=== PATIENT | female | born 1955 | race Caucasian/White ===

== ENCOUNTER → 2023-12-26 11:44 | Outpatient (BNVA) | payer SELFPAY | PROVIDERS: PCP Nurse Practitioner; Visit Provider Nurse Practitioner ==

== ENCOUNTER 2024-10-27 09:23 | Outpatient (AMB) | payer OTHER, MEDICARE, SELFPAY ==
--- NOTE | 2024-10-27 09:25 | A.OFFVIS_ITS ---
Vital Signs 10/27/24 09:26 Height 5 ft 3 in Weight 102 lb BMI 18.1 BP 148/66 H Blood Pressure Location Rt brachial Position Sitting Pulse 98 Pulse Source Pulse Oximeter Pulse Oximetry (%) 94 Oxygen Delivery Method Room Air Intake Visit Reasons: [place] rescreening. [facility] 12/2023. Intake Note: Est pt for rescreening prior to colo. CC: Pt denies any significant GI sx or concerns at this time. Pt still reports occasional gas and bloating but states that it is diet controlled and she is not overly concerned about it. Precision Inspector Required: No Accompanied by: Self / Same As Patient Allergies No Known Drug Allergies Allergy (Unknown, Verified 10/27/24 09:26) none HPI HPI [place] rescreening. [facility] 12/2023.: Details: Assessment & Plan (1) Positive colorectal cancer screening using Cologuard test: Code(s): R19.5 - Other fecal abnormalities Category: Medical (2) Encounter for pre-operative examination: Code(s): Z01.818 - Encounter for other preprocedural examination Plan She had a prior colonoscopy >10 year ago that went well and now a positive Cologuard. She had uneven BM's with days of CIC and gassiness I suggest a benefiber or citrucel supplement. She feels bubbling in her RUQ at times but no other upper GI problems. She denies any cardiac or respiratory problems She is fairly naive to anesthesia and sedation. NO ID problems. She had a + Cologuard but no known FHX Of crc or polyps. Orders: Orders Colonoscopy - GI Use Only Today R19.5 - Other fecal abnormalities, Z01.818 - Encounter for other preprocedural examination Comprehensive Met. Panel Today R19.5 - Other fecal abnormalities, Z01.818 - Encounter for other preprocedural examination Complete Blood Count Auto Diff Today R19.5 - Other fecal abnormalities, Z01.818 - Encounter for other preprocedural examination Medications: New polyethylene glycol 3350 (Miralax) 238 grams PO ONCE 238 grams 0RF colonoscopy prep 1 day bisacodyl (Dulcolax (bisacodyl)) 10 mg (2 x 5 mg) PO BEDTIME 4 tabs 0RF 2 days LABS COLONOSCOPY BIOPSY TODAYS VISIT She is here today because of apparent miscommunication although we saw her in December of 2023 and a colonoscopy was ordered at that time, she has not been receiving the messages from our schedulers to call back. I think we will probably resolve this by utilizing her home number instead of her cell phone number which has not answering machine available. She denies any cardiac or respiratory problems She is fairly naive to anesthesia and sedation. NO ID problems. She had a + Cologuard but no known FHX Of crc or polyps. [facility] Medical History Squamous cell carcinoma, leg Lumbar vertebral fracture Surgical History (Reviewed 10/27/24 @ 09: by AMBREEN Peres) H/O colonoscopy Family History (Reviewed 10/27/24 @ 09: by AMBREEN Peres) Mother Primary cancer of foot Maternal Aunt Breast cancer Social History (Reviewed 10/27/24 @ 09: by AMBREEN Peres) Alcohol intake: former Comment: social drinker in the past (wine and beer) Patient Tobacco Use Status: Current everyday Tobacco user Cigarettes Per Day: 10 Years Smoked: 30 Review of Systems Const Denies fatigue, Denies fever(s), Denies night sweats, Denies poor appetite and Denies weight loss Eyes Details: GLASSES Reports requires corrective lenses ENT Reports Normal hearing present, Denies dental pain, Denies dysphagia, Denies hearing loss, Denies mouth pain, Denies odynophagia, Denies throat swelling, Denies tongue swelling and Reports other (Dentition adequate) Card Reports no additional complaints Resp Reports no additional complaints GI Details: Denies abdominal pain, Denies melena, Denies bloating, Denies hematochezia, Denies constipation, Denies GI cramping, Denies dysphagia, Denies excessive flatus, Denies early satiety, Denies heartburn, Denies diarrhea, Denies nausea, Denies odynophagia, Denies vomiting and Denies hematemesis Skin/Breast Denies pruritus, Denies lesions, Denies rash and Denies jaundice Neuro Reports Normal hearing present and Denies Abnormal speech present Endo Denies fatigue Aller/Immun Denies throat swelling and Denies tongue swelling Physical Exam Vital Signs: Last Vital Signs Pulse 98 10/27/24 09:26 BP 148/66 H 10/27/24 09:26 Pulse Ox 94 10/27/24 09:26 Oxygen Delivery Method Room Air 10/27/24 09:26 BMI result Body Mass Index 18.1 Const General: cooperative, no acute distress, well developed and well groomed Nutritional Appearance: average body habitus and well nourished Orientation/consciousness: oriented to person, oriented to place and oriented to time Limitations: No language barrier HEENT Head: Yes normocephalic and Yes atraumatic Eyes General: appearance normal, both eyes and all related structures Pupils: Equal, round and reactive pupils present Neck Neck: Yes normal visual inspection and Yes no lymphadenopathy Thyroid: Thyroid normal Resp Effort & Inspection: normal respiratory effort and able to speak in complete sentences Auscultation: clear to auscultation bilaterally Cardio Rate: regular rate Rhythm: regular rhythm Heart sounds: Normal, physiologic split S2 sound present Peripheral pulses: radial pulses present and posterior tibial pulses present GI Inspection: No distended and No Abdominal panniculus present Palpation (GI): Soft to palpation, nontender, no guarding, not rigid and No hepatosplenomegaly present Percussion: Yes normal to percussion Auscultation: normal bowel sounds Rectal Exam - Female: deferred Skin General skin exam: no rashes or lesions noted, turgor normal, skin not dry, no jaundice, No spider nevi and no striae Rashes: no rashes Nails: normal Neuro General: oriented to person, oriented to place and oriented to time Cranial nerves: Yes Equal, round and reactive pupils present and Yes Normal hearing present Speech: No Abnormal speech present Extrem General: Yes normal to inspection, No clubbing, No cyanosis and No edema Psych Appearance: grossly normal and well kempt Mental Status: mental status grossly normal Speech and movement: Normal speech and movement present Affect: normal affect Attitude: cooperative Thought process: Normal thought process present and not confabulating Thought content: Normal thought content present Insight: Good insight present (Psych) Judgement: Good judgement present (Psych) Assessment & Plan Assessment & Plan (1) Positive colorectal cancer screening using Cologuard test: Code(s): R19.5 - Other fecal abnormalities Category: Medical (2) Smoker: Code(s): F17.200 - Nicotine dependence, unspecified, uncomplicated Category: Medical (3) Chronic pain syndrome: Code(s): G89.4 - Chronic pain syndrome Category: Medical (4) Opioid dependence: Code(s): F11.20 - Opioid dependence, uncomplicated Category: Medical Plan She is here today because of apparent miscommunication although we saw her in December of 2023 and a colonoscopy was ordered at that time, she has not been receiving the messages from our schedulers to call back. I think we will probably resolve this by utilizing her home number instead of her cell phone number which has not answering machine available. She denies any cardiac or respiratory problems She is fairly naive to anesthesia and sedation. NO ID problems. She had a + Cologuard but no known FHX Of crc or polyps. Coding Level of Care Code Est Pt Level 3 (67269) Diagnoses Positive colorectal cancer screening using Cologuard test R19.5 Smoker F17.200 Chronic pain syndrome G89.4 Opioid dependence F11.20
[2024-10-27 09:26] VITALS: BP 148/66; PULSE 98; O2SAT 94; BMI 18.1
--- OUTSIDE RECORDS SUMMARY | 2024-10-27 10:06 | XMS_ITS | Clinical Summary ---
Author Organization [facility] Address [address] [place] [address] Care Team Providers Care Photographic Platemaker Name Role Phone Dayanara Arrington PA-C Primary Care Provider [phone] Social History Tobacco Use Types Packs/Day Years Used Date Smoking Tobacco: Never Assessed Sex and Gender Information Value Date Recorded Sex Assigned at Not on file Gender Identity Not on file Sexual Orientation Not on file Plan of Treatment Health Maintenance Due Date Last Done Comments Hepatitis C Screening 1955 COVID-19 Vaccine (#1) 1957 Depression Screening 1969 Preventative Health Evaluation 1975 DTap / Tdap / Td (1 - Tdap) 01/24/1976 Colon Cancer Screening (Colonoscopy) 2002 Breast Cancer Screening (Mammogram) 2007 Shingrix-Zoster Vaccine (1 of 2) 2007 Fall Risk Assessment 2022 Osteoporosis Screening (DEXA Scan) 2022 Pneumococcal Vaccine (1 of 1 - PCV) 2022 Influenza Vaccine (#1) 2024 RSV Adult > 60+ Yrs or Pregn ant (1 - 1-dose 75+ series) 01/24/2032 Hepatitis B Vaccines Aged Out No long er eligible based on patient's age to complete this topic RSV Ped < 20 months Aged Out No longe r eligible based on patient's age to complete this topic Care Teams Photographic Platemaker Relationship Specialty Start Date End Date Dayanara Arrington PA-C [address] [place] [address] [address] [place] [address] PCP - General Family Medicine 09/21/20
--- OUTSIDE RECORDS SUMMARY | 2024-10-27 10:07 | XMS_ITS | Clinical Summary ---
Author Organization [facility] Address [address] [place] [address] Phone Care Team Providers Care Hotel Services Supervisor Name Role Phone Bolivar Rosario MD Primary Care Provider + Allergies No known active allergies Medications carisoprodol (SOMA) 350 MG tablet Take 350 mg by mouth nightly at bedtime. 4 Active polyethylene glycol (MIRALAX) 17 gram/dose powder MIX AND TAKE 238 GIVE ORALLY ONCE FOR COLONOSCOPY PREP X 1 DAY 4 Active acetaminophen-c odeine (TYLENOL #2) 300-15 mg per tablet Take 1 tablet by mouth every 4 (four) hours as needed for pain (specific location in comments). Active naproxen (NAPROSYN) 500 MG tablet Take 1 tablet (500 mg total) by mouth 2 (two) times a day for 3 days. Then twice daily as needed for pain, inflammation 20 tablet 5 Active albuterol (PROAIR HFA) 90 mcg/actuation inhaler Inhale 2 puffs into the lungs every 4 (four) hours as needed for wheezing. 18 g 5 Active benzonatate (TESSALON) 100 MG capsule Take 2 capsules (200 mg total) by mouth 3 (three) times a day as needed for cough. 21 capsule 5 Active inhaler spacing device (AEROCHAMBER,BR EATHERITE) Spcr Inhale 1 each into the lungs every 4 (four) hours as needed (WITH INHALER). 1 each 5 Active Active Problems No known active problems Immunizations Immunization Administration Dates Next Due Tdap 10/04/2022 Social History Tobacco Use Types Packs/Day Years Used Date Smoking Tobacco: Never Assessed Tobacco Cessation:Counseling Given: Yes Education Answer Date Recorded Are you interested in more education? Not on chelsey e 03/26/2024 Are you concerned about learning? Not on file 03/26/2024 No 03/26/2024 No 03/26/2024 Digital Access Answer Date Recorded No 03/26/2024 No 03/26/2024 Reliable internet access at home? Not on file 03/26/2024 Device with a working camera? Not on file Comments Unknown Sex and Gender Information Value Date Recorded Sex Assigned at Not on file Legal Sex Female 8:05 AM EST Gender Identity Not on file Sexual Orientation Not on file Last Filed Vital Signs Vital Sign Reading Time Taken Comments Blood Pressure 134/84 05/04/2024 8:34 AM EST Pulse 111 05/04/2024 8:34 AM EST Temperature 36.7 C (98.1 F) 05/04/2024 8:34 AM EST Respiratory Rate 18 05/04/2024 8:34 AM EST Oxygen Saturation 96% 05/04/2024 8:34 AM EST Inhaled Oxygen Concentration - - Weight - - Height - - Body Mass Index - - Plan of Treatment Health Maintenance Due Date Last Done Comments LIPID PANEL 1957 DEPRESSION SCREENING 1969 SMOKING Hx and SMOKELESS TOB ACCO SCREENING 1970 HEPATITIS C SCREENING 1975 MAMMOGRAM 1997 COLOGUARD 2002 COLONOSCOPY 2002 COLORECTAL CANCER SCREENING 2002 FIT TEST 2002 FOBT 2002 SIGMOIDOSCOPY 2002 VIRTUAL COLONOSCOPY 2002 PNEUMOCOCCAL VACCINES (50+ y ears) (1 of 1 - PCV) 2007 ZOSTER VACCINES (1 of 2) 2007 OSTEOPOROSIS SCREENING INITI AL (ONE-TIME) 2022 COVID-19 VACCINE (2 - 2023-2 5 season) 2023 10/23/2020 RSV VACCINE (1 - 1-dose 75+ series) 01/24/2032 Adult Td,Tdap Booster 10/04/2032 10/04/2022 HEPATITIS A VACCINES Aged Out No long er eligible based on patient's age to complete this topic HIB VACCINES Aged Out No longer eligi ble based on patient's age to complete this topic MENINGOCOCCAL VACCINES (ACWY) Aged Out No longer eligible based on patient's age to complete this topic MENINGOCOCCAL VACCINES (B) Aged Out N o longer eligible based on patient's age to complete this topic Medical Devices Not on [place] [address] [employer] Member Subscriber Plan / Payer (Ef fective 2018-Present) Name:JensRebecca waterman Relation to Subscriber:Self Name:TetoRebecca Payer ID:[id number] (NAIC) Type:PPO Address: [address] [id number] [employer] PREFERRED [place] [address] [employer] Member Subscriber Plan / Payer (Ef fective 2018-Present) Name:Rebecca Irene Relation to Subscriber:Self Name:TetoRebecca Payer ID:[id number] (NAIC) Type:PPO Address: [address] [id number] [employer] P[employer] REPLACEMENT [employer] REPLACEMENT [employer] P[employer] PPO REPLACEMENT [employer] REPLACEMENT [employer] REPLACEMENT Care Teams Hotel Services Supervisor Relationship Specialty Start Date End Date Bolivar Rosario MD [address] [facility] [address] [place] [address] PCP - General Internal Medicine 03/26/24 Additional Source Comments The information contained in this document represents components of the legal health record. It is not the complete legal health record.[facility]
== END 2024-10-27 10:04 | disposition home or self-care (01) ==
PROVIDERS: PCP Nurse Practitioner; Visit Provider Nurse Practitioner
DX: R19.5 Other fecal abnormalities (principal); F17.200 Nicotine dependence, unspecified, uncomplicated; G89.4 Chronic pain syndrome; F11.20 Opioid dependence, uncomplicated
CPT/HCPCS: 99213

== ENCOUNTER 2024-12-16 09:29 | Day surgery (SDC) | payer MEDICARE, OTHER, SELFPAY ==
--- OUTSIDE RECORDS SUMMARY | 2024-12-02 18:29 | XMS_ITS | Clinical Summary ---
Author Organization [facility] Address [address] [place] [address] Care Team Providers Care Regulator Operator Name Role Phone Dayanara Arrington PA-C Primary Care Provider [phone] Social History Tobacco Use Types Packs/Day Years [...] age to complete this topic Care Teams Regulator Operator Relationship Specialty Start Date End Date Dayanara Arrington PA-C [address] [place] [address] [address] [place] [address] PCP - General Family Medicine 09/21/20
--- OUTSIDE RECORDS SUMMARY | 2024-12-02 18:29 | XMS_ITS | Clinical Summary ---
Author Organization [facility] Address [address] [place] [address] Phone Care Team Providers Care Clinical Lab Clerk Name Role Phone Bolivar Rosario MD Primary [...] 2007 OSTEOPOROSIS SCREENING INITI AL (ONE-TIME) 2022 INFLUENZA VACCINE (#1) 2024 COVID-19 VACCINE (2 - 2024-2 6 season) 2024 10/23/2020 RSV VACCINE (1 - 1-dose 75+ [...] topic Medical Devices Not on file [place] [address] [employer] PREFERRED PPO REPLAC[place] [address] [employer] [facility] UMR [place] PREFERRED PPO REPLACEMENT [address] [employer] Member Subscriber Plan / Payer ( fective 2018-) Name:Rebecca Irene Relation to Subscriber:Self Name:Rebecca Irene Payer ID:[id number] (NAIC) Type:PPO Address: [address] [id number] [employer] PREFERRED PPO REPLACEMENT [address] [employer] REPLACEMENT [employer] [facility] UMR [employer] P[employer] PPO REPLACEMENT [facility] UMR [employer]PO REPLACEMENT Care Teams Clinical Lab Clerk Relationship Specialty Start Date End Date Bolivar Rsoario MD [address] [facility] [address] [place] [address] PCP - General Internal Medicine 03/26/24 Additional Source Comments The information contained in this document represents components of the legal health record. It is not the complete legal health record.[facility]
[2024-12-14 14:43] VITALS: BMI 18.1
--- NOTE | 2024-12-15 14:51 | P.CONAN_ITS ---
Documented by User: Cayla Robbins NP 12/15/24 14:52 HPI - Anesthesia Eval Consult details Narrative: 69 yr old female for Colonoscopy PMFSH Active Problems Active Problems: All Active Problems Positive colorectal cancer screening using Cologuard test (Acute) Vertigo (Acute) Chronic pain syndrome (Acute) Degenerative disc disease, cervical (Acute) Lumbar degenerative disc disease (Acute) Opioid dependence (Acute) Smoker (Acute) Past Medical History Medical History Tobacco dependence Opioid dependence Vertigo Lumbar degenerative disc disease Chronic pain Squamous cell carcinoma, leg Lumbar vertebral fracture Family History Family History Mother Primary cancer of foot Maternal Aunt Breast cancer Surgical History Surgical History H/O colonoscopy Social History Social History Alcohol intake: former Comment: social drinker in the past (wine and beer) Patient Tobacco Use Status: Current everyday Tobacco user Tobacco use type: Cigarette Cigarettes Per Day: 6 Years Smoked: 30 Smoked in Last 30 Days: Yes Use of substances other than those prescribed or required for medical reasons: No Have you been hit, kicked, punched, or otherwise hurt by someone within the past year? If so, by whom?: No Are you DNR?: No Advance Directives: No Advance Directives Information Provided: Yes Meds Allergies Allergy/AdvReac Type Severity Reaction Status Date / Time No Known Allergies Allergy Verified 12/16/24 10:53 Home Medications ?Medication ?Instructions ?Recorded ?Confirmed ?Last Taken ?Type acetaminophen 300 mg-codeine 30 mg 1 tab PO BID PRN Pa in 12/26/23 12/16/24 Unknown History tablet carisoprodol 350 mg tablet 350 mg PO BEDTIME 12/26/23 12/16/24 Unknown History Exam Height,Weight and Vital Signs: Height 5 ft 3 in Weight 46.266 kg Documented by User: Diego Guerin MD 12/16/24 12:52 [facility] Past Medical History Medical History Tobacco dependence Opioid dependence Vertigo Lumbar degenerative disc disease Chronic pain Squamous cell carcinoma, leg Lumbar vertebral fracture Functional capacity: independent ambulation Family History Family History Mother Primary cancer of foot Maternal Aunt Breast cancer Family history of problems with anesthesia: No Surgical History Surgical History H/O colonoscopy History of Problems with Anesthesia: No Social History Social History Alcohol intake: former Comment: social drinker in the past (wine and beer) Patient Tobacco Use Status: Current everyday Tobacco user Tobacco use type: Cigarette Cigarettes Per Day: 6 Years Smoked: 30 Smoked in Last 30 Days: Yes Use of substances other than those prescribed or required for medical reasons: No Have you been hit, kicked, punched, or otherwise hurt by someone within the past year? If so, by whom?: No Are you DNR?: No Advance Directives: No Advance Directives Information Provided: Yes Meds Allergies Allergy/AdvReac Type Severity Reaction Status Date / Time No Known Allergies Allergy Verified 12/16/24 10:53 Home Medications ?Medication ?Instructions ?Recorded ?Confirmed ?Last Taken ?Type acetaminophen 300 mg-codeine 30 mg 1 tab PO BID PRN Pa in 12/26/23 12/16/24 Unknown History tablet carisoprodol 350 mg tablet 350 mg PO BEDTIME 12/26/23 12/16/24 Unknown History Exam Exam Date and Time: 12/16/2024 Airway Mallampati Class: II TM Dist: >3cm Neck ROM: Full Loose/Missing/Broken Teeth: No Heart: normal Lungs: normal Other: normal Assessment and Plan Assessment Anesthesia Assessment: Anesthesia Plan Discussed, Smoking Cess. Discussed and Chart Reviewed Final Anesthetic Review Family History of Problems with Anesthesia: No History of Problems with Anesthesia: No NPO: Yes ASA Class: II Final Preanesthetic Review: No Changes in Pt Med Stat, Meds/Allgs Chart Reviewed, Consent Obtained/Reviewed and Anes Risks/Benef Reviewed Patient Risk: Low Procedure Risk: Low Anesthetic Plan Anesthetic Plan: MAC: Disposition: Standard PACU
[2024-12-16 10:48] VITALS: BP 132/58; PULSE 68; RESP 17; TEMP 36.2; O2SAT 98
[2024-12-16] MEDS: Lactated Ringers 1,000 ML 100 ML IVCONT (10:51)
[2024-12-16 10:54] VITALS: BMI 17.7
--- NOTE | 2024-12-16 13:06 | P.HPSUR_ITS ---
Pre-Procedural Eval Section A - 24 Hr Update-Section A only Date of Service: 12/16/24 Section B - Complete if H&P > 30 days Chief Complaint: pos cologuard test Relevant Family History (Specify if Yes): No Relevant Social History: Tobacco Use Present Medications: see Short Stay Collaborative assessment Medical History: Significant History (Squamous cell carcinoma, leg Lumbar vertebral fracture) History of Previous Operations: Relevant previous surgery/procedure and date(s) (H/O colonoscopy) Allergies: Allergies Allergy/AdvReac Type Severity Reaction Status Date / Time No Known Allergies Allergy Verified 12/16/24 10:53 Review of Systems Sugical H&P ROS: Negative: Constitution, Cardiovascular, Respiratory, Neurological, Psychiatric, Hem-Onc, Allergic/Immunologic, Gastrointestinal, Genitourinary, Musculoskeletal, Integumentary, Endocrine and Eyes/Ears /Nose/Throat Exam Surgical H&P Exam: Normal: HEENT, Normal: Heart, Normal: Lungs, Normal: Extremities, Normal: Abdomen, Normal: Skin and Normal: Neurological Plan Diagnosis/Plan: Unchanged I have reviewed the history and physical and performed a pertinent physical examination on my patient. No changes have occurred unless specified. Time Spent With Patient Time: Total time managing care of this patient today ____ minutes.
--- NOTE | 2024-12-16 13:39 | P.OPN-COLO_ITS ---
Colonoscopy Operative Note Operative Note Date of Service: 12/16/24 Narrative: Operative Information Procedure Description: Colonoscopy Indication: pos cologuard Anesthesia: MAC COLONOSCOPY Instrument: Olympus variable stiffness pediatric scope 190L Colonoscopy Monitoring: Vital signs and clinical assessment, continuous EKG monitoring, Pulse oximetry, Carbon Dioxide monitoring and blood pressure monitoring were done throughout the procedure. Colon withdrawal time was 13 minutes. Procedure: The patient was placed in the left lateral decubitis position and pre-procedure medications were administered. After a digital rectal examination of the ano-rectum, the video colonoscope was inserted into the rectum and advanced through the colon to the cecum/TI. The colonoscope was slowly withdrawn in a retrograde panoramic fashion and the colon mucosa was carefully examined including a retroflexed view of the rectum. Findings and interventions are described below. Procedure Difficulty: easy Findings: Terminal Ileum-normal Cecum:normal Ascending Colon: 4-5 mm sessile polyp removed with cold forceps Transverse Colon -normal Descending Colon:normal Sigmoid Colon: moderate diverticulosis, 6-8 mm sessile polyp removed with cold snare Rectum: Retroflexion with small internal hemorrhoids seen, grade I, 4-5 mm sessile polyp removed with cold forceps Anorectum - normal Intervention: cold forceps, cold snare Colon preparation: [place] Bowel Preparation Scale Right colon; 2 Transverse colon: 2 Left colon; 2 (0 = Unprepared colon segment with mucosa not seen due to solid stool that cannot be cleared. 1 = Portion of mucosa of the colon segment seen, but other areas of the colon segment not well seen due to staining, residual stool and/or opaque liquid. 2 = Minor amount of residual staining, small fragments of stool and/or opaque liquid, but mucosa of colon segment seen well. 3 = Entire mucosa of colon segment seen well with no residual staining, small fragments of stool or opaque liquid) Impression and Post Procedure Diagnosis: diverticulosis colon polyps x 3 internal hemorrhoids Plan: High fiber diet leaflet Avoid straining at stool, epsom salts and sitz bath, anusol supps or cream Repeat Colonoscopy in 5 years if adenomas, 10 yrs if non pre cancerous or earlier if clinically indicated Above findings were reviewed with the patient and relevant handouts were provided if indicated.
[2024-12-16 13:49] VITALS: BP 108/59; PULSE 75; RESP 16; TEMP 36.6; O2SAT 100
[2024-12-16 14:04] VITALS: BP 120/56; PULSE 69; RESP 16; TEMP 36.6; O2SAT 97
== END 2024-12-16 15:22 | disposition home or self-care (01) ==
PROVIDERS: PCP Physician Assistant Medical; Visit Provider Internal Medicine Gastroenterology
PROC: 0DJD8ZZ Inspection of Lower Intestinal Tract, Via Natural or Artificial Opening Endoscopic (ICD-10-PCS; CPT 45378; principal; 2024-12-16 12:30)
DX: Z12.11 Encounter for screening for malignant neoplasm of colon (principal); R19.5 Other fecal abnormalities; K57.30 Diverticulosis of large intestine without perforation or abscess without bleeding; K63.5 Polyp of colon; D12.2 Benign neoplasm of ascending colon; D12.7 Benign neoplasm of rectosigmoid junction; D12.5 Benign neoplasm of sigmoid colon; K64.0 First degree hemorrhoids
CPT/HCPCS: 45380; 45385; 88305; J2003; J2704; J3010

== ENCOUNTER → 2024-12-16 09:29 | Outpatient (BNV) | payer MEDICARE, OTHER, SELFPAY | PROVIDERS: PCP Physician Assistant Medical; Visit Provider Internal Medicine Gastroenterology | DX: Z12.11 Encounter for screening for malignant neoplasm of colon (principal); R19.5 Other fecal abnormalities; D12.2 Benign neoplasm of ascending colon; D12.8 Benign neoplasm of rectum; K57.30 Diverticulosis of large intestine without perforation or abscess without bleeding; K64.0 First degree hemorrhoids; D12.5 Benign neoplasm of sigmoid colon | CPT/HCPCS: 45380; 45385 ==